=== PATIENT | male | born 1940 | race Two or more races ===

== ENCOUNTER → 2019-11-15 10:26 | Outpatient (CLI) | payer MEDICARE, OTHER, SELFPAY ==
--- NOTE | 2019-11-15 | PHA_PTH ---
PATIENT: SHERRY DIAZ LOC: [facility] U#:[id number] AGE/SX: 85/M ROOM: RE11/15/[address]: Dr. 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 AM:alma 11/16/19 COMMENT Immunohistochemistry ([id number]) supports the above diagnosis. HPV surrogate marker p16 is negative in the lesion. The lesion appears to have been completely excised in the planes examined. Case has been reviewed in consultation with Dr. Koenig who concurs with the above diagnosis. IDC:SJ MICROSCOPIC DESCRIPTION Slides are reviewed. GROSS DESCRIPTION Received is one container labeled with the patient's name and not further designated. The specimen consists of an irregular fragment of pink-campbell soft tissue measuring 0.7 x 0.3 x 0.2 cm. The specimen is bisected and totally submitted in one cassette. / AM:alma 11/15/19 TC:0 CPT: 46902
--- NOTE | 2019-11-15 | IMM_PTH ---
PATIENT: SHERRY DIAZ LOC: [facility] U#:[id number] AGE/SX: 85/M ROOM: RE11/15/[address]: Dr. Flo Walton, JOSE : 1940 BED: DIS: SPEC #: [id number] RECD: 11/16/19 12:19 STATUS: [place]elvin #: [id number] MOE: 11/15/19 00:[address]: Flo Walton DEPT: IMMUNOHISTOCHEMISTRY RECD BY: Zakiya Quarles ENTERED: 11/16/19 12:20 SP TYPE: IMMUNO OTHR DR: No Primary Care Phys Tissues: Pharynx, NOS Procedures: CK14 (add) CK20 (add) CK5-6 (add) CK7 (add) KONG-2 (add) KI-67 (add) P16 (add) P53 (add) Pankeratin (initial) P40 (add) S-100 (add) PHYSICIAN & INSTITUTION [facility] [phone] SPECIMEN INFORMATION: Tissue Source: Pharynx Clinical Info: Pharynx lesion Specimen Number: [id number] CPT code: 26761, 45147 x10 METHODOLOGY: Deparaffinized sections of prefer/formalin-fixed tissue or PAP/DQ stained slides are incubated with monoclonal/polyclonal antibodies/oligonucleotide probes. Localization is made via biotin free immunoperoxidase method. Appropriate controls are performed and reacted as expected. Results on target cell population are indicated in the following table: RESULTS: ANTIBODY / CLONE RESULT AE1-3 (AE1/AE3/PCK26) positive CK7 (OV-TL12/30) positive, dim CK20 (KS20.8) negative KONG-2 (SP21) negative S-100 (4C4.9) negative CK5-6 (D5 & 1684) positive CK14 (LL002) positive P40 (BC28) positive P53 (DO-7) negative Ki-67 (30-9) positive, moderate P16 (E6H4) negative These tests were developed and their performance characteristics determined by [facility]. They may not have been cleared or approved by the [place]. Food and Drug Administration. The FDA has determined that such clearance or approval is not necessary. The above immunohistochemical/dualISH markers are ordered and reviewed by the Pathologist. 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 AM:alma 11/17/19 Case has been reviewed in consultation with Dr. Koenig who concurs with the above diagnosis. IDC:SJ
== END ==
PROVIDERS: Referring Provider Dentist Oral and Maxillofacial Surgery; Visit Provider Dentist Oral and Maxillofacial Surgery
DX: Q38.8 Other congenital malformations of pharynx (principal)
CPT/HCPCS: 88305; 88341; 88342

== ENCOUNTER 2020-06-26 05:45 | Day surgery (SDC) | payer MEDICARE, OTHER, SELFPAY ==
[2020-06-26] VITALS (8 sets, daily range): BP systolic 130–161; BP diastolic 71–102; PULSE 75; RESP 16–18; TEMP 36.3–37; O2SAT 92–96; BMI 26.3
[2020-06-26] MEDS: Lactated Ringers 1,000 ML 100 ML IV ×2 (06:29→08:22)
--- NOTE | 2020-06-26 07:26 | PCM.DC ---
You will use the following diet at home:: No restrictions Discharge Activity: Return to Normal Activity Call your doctor if your incision/area has: Sudden Increased Bleeding, Increased Pain/ Swelling Allergies/Adverse Reactions: Allergies amoxicillin Allergy (Verified 06/26/20 06:07) Hives shellfish derived Allergy (Verified 06/26/20 06:07) Nausea/Vom/Diarrhea Medications to take at Discharge Ascorbic Acid [Vitamin C] 1,000 mg PO DAILY 06/04/20 Aspirin E.C. [Ecotrin] 81 mg PO DAILY@0800 06/04/20 Atorvastatin Calcium [Lipitor] 40 mg PO QHS 06/04/20 Clopidogrel Bisulfate [Plavix] 75 mg PO DAILY 06/04/20 Levothyroxine [Synthroid] 100 mcg PO DAILY 06/04/20 Lisinopril 20 mg PO DAILY 06/04/20 Metoprolol Succinate [Toprol Xl] 25 mg PO .QAM 06/04/20 Metoprolol Succinate [Toprol Xl] 100 mg PO QHS 06/04/20 Multivitamin 1 ea PO DAILY 06/04/20 [place]-3 Fatty Acids/Fish Oil [Fish Oil 1,000 mg Capsule] 1 ea PO BID 06/04/20 Pantoprazole Sodium [Protonix] 20 mg PO DAILY 06/04/20 Primary Care Physician: Adán Jay MD [Primary Care Provider] - Test Results: Test results from this visit will be discussed in further detail at your follow-up appointment, if applicable. Please Follow Up With: Clayton Mesa MD When: 1 week
--- NOTE | 2020-06-26 07:27 | PCM.OPRPT ---
Problem List (1) Mass of oropharynx Status: Chronic Report of Operation Date of Procedure: 06/26/20 Pre-Operative Diagnosis: left oropharyngeal mass Post-Operative Diagnosis: left oropharyngeal mass Surgery/Procedure Performed:: excisional biopsy left oropharyngeal mass Type of Anesthesia:: General Description of Procedure: on the day of the procedure, after appropriate informed consent was obtained, the patient was brought to the operating room and placed in supine position on the operating table. he was placed under general endotracheal anesthesia by the anesthesiologist. the endotracheal tube was secured, the eyes were taped. the table was rotated 90 degrees toward the surgeon. a jamaal amber mouthgag was inserted and suspended from the thorne stand. a rim of normal tissue along with ulcerated tissue was removed with the bovie along the left anterior tonsillar pillar. hemostasis was achieved with the bovie. a valsalva maneuver was held by the anesthesiologist and hemostasis was observed. the table was rotated 90 degrees toward the anesthesiologist where he was extubated uneventfully. he was transferred to the PACU in stable condition.
--- NOTE | 2020-06-26 07:30 | MASS_PTH ---
PATIENT: SHERRY DIAZ LOC: [facility] U#:[id number] AGE/SX: 80/M ROOM: RE06/26/[address]: Dr. Kenneth Mesa MD : 1940 BED: DIS: 06/26/2020 SPEC #: [id number] RECD: 06/26/20 09:13 STATUS: HOLLY RESelvin #: [id number] MOE: 06/26/20 07:[address]: Kenneth Mesa DEPT: SURGICAL PATHOLOGY RECD BY: Myles Diaz ENTERED: 06/26/20 10:05 SP TYPE: Mass OTHR DR: Dr. 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 See comment. 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 An invasive carcinoma cannot be entirely excluded. Reference is made to the patient's pharynx biopsy from 11/16/19 ([id number]) in which moderate to severe squamous dysplasia was identified. The case is sent in consultation to [facility] and reviewed by Dr. Jose. This report is viewable in EMR. Case has been reviewed in consultation with Dr. Koenig who concurs with the above diagnosis. IDC:ANGEL MICROSCOPIC DESCRIPTION Slides are reviewed. GROSS DESCRIPTION Received in fixative is one container labeled with the patient's name and designated biopsy left oropharyngeal mass. The specimen consists of one irregular fragment of light campbell soft tissue that measures 1 x 0.5 x 0.2 cm. The specimen is bisected and submitted entirely in one cassette. / ANGEL:alma 06/26/20 TC:0 CPT: 62692
--- NOTE | 2020-06-26 09:24 | SUR.PHASEII ---
Dr. Mesa ordered for pt to hold plavix and aspirin til Thursday. Pt and family instructed of this.
== END 2020-06-26 09:51 | disposition home or self-care (01) ==
LOC: SDC 05:48 → AC 05:49
PROVIDERS: Anesthesiology; PCP Family Medicine; Referring Provider Otolaryngology; Visit Provider Otolaryngology
PROC: (CPT 42800; principal; 2020-06-26 07:15)
DX: D00.08 Carcinoma in situ of pharynx (principal); I10 Essential (primary) hypertension; I25.2 Old myocardial infarction; E07.9 Disorder of thyroid, unspecified; F17.210 Nicotine dependence, cigarettes, uncomplicated; E78.00 Pure hypercholesterolemia, unspecified; Z11.59 Encounter for screening for other viral diseases; Z95.810 Presence of automatic (implantable) cardiac defibrillator; Z79.899 Other long term (current) drug therapy
CPT/HCPCS: 00170; 42800; 87635; 88305; 94799; J7120; J2405; U0003